=== PATIENT | female | born 2000 | race African-American/Black ===

== ENCOUNTER 2021-04-25 08:42 | Outpatient (CLI) | payer SELFPAY | END 2021-04-25 08:43 | disposition EMS.NT | LOC: EMS 08:42 | DX: Z04.1 Encounter for examination and observation following transport accident (principal) ==

== ENCOUNTER 2021-04-25 17:20 | Emergency (ER) | payer OTHER ==
[2021-04-25 17:38] VITALS: BP 137/84
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
[2021-04-25] MEDS ORDERED: KETOROLAC 60 MG/2 ML VIAL IM STA (18:28)
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
== END 2021-04-25 19:05 | disposition home or self-care (01) ==
LOC: ED 17:20
DX: S09.90XA Unspecified injury of head, initial encounter (principal); R51.9 Headache, unspecified; V43.52XA Car driver injured in collision with other type car in traffic accident, initial encounter
CPT/HCPCS: 96372; 99282; 99284